=== PATIENT | male | born 1990 | race Hispanic/Latino ===

== ENCOUNTER 2018-12-10 20:21 | Emergency (ER) | payer SELFPAY ==
[2018-12-10 20:30] VITALS: RESP 18
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
[2018-12-10 22:21] VITALS: BP 126/78; PULSE 78; TEMP 98; O2SAT 100
== END 2018-12-10 22:21 | disposition home or self-care (01) ==
LOC: H.ER 20:21
DX: S01.80XD Unspecified open wound of other part of head, subsequent encounter (principal); Y09 Assault by unspecified means; Z88.0 Allergy status to penicillin